=== PATIENT | female | born 1945 | race Caucasian/White ===

== ENCOUNTER 2020-07-04 13:56 | Outpatient (REF) | payer MEDICARE, SELFPAY ==
[2020-07-04 18:25] LABS: MANUAL DIFF FLAG NO
[2020-07-04 18:30] LABS: Basophils Percent Auto 0.3 % (0-2); Eosinophils Absolute Auto 0.2 X10*3/uL (0.0-0.4); Eosinophils Percent Auto 2.6 % (0-4); Hematocrit 38.1 % (37-47); Hemoglobin 13.1 g/dl (12.0-16.0); Imm Gran Abs Auto 0.01 X10*3/uL (0.00-0.03); Imm Gran Pct Auto 0.2 % (0.0-0.4); Lymphocytes Absolute Auto 2.7 X10*3/uL (1.2-4.9); Lymphocytes Percent Auto 43.8 % (20-40); Mean Corpuscular HGB Conc 34.4 g/dl (31.0-35.0); Mean Corpuscular Hemoglobin 32.3 pg (27.0-33.0); Mean Corpuscular Volume 94.1 fL (80-98); Mean Platelet Volume 12.2 fL (9.4-12.3); Monocytes Absolute Auto 0.5 X10*3/uL (0.1-1.2); Monocytes Percent Auto 7.7 % (2-11); Neutrophils Absolute Auto 2.8 X10*3/uL (2.0-8.3); Neutrophils Percent Auto 45.4 % (45-73); Platelet Count 172 X10*3/uL (160-400); Red Blood Count 4.05 X10*6/uL (4.20-5.50); Red Cell Distribution Width 11.9 % (11.0-16.0); White Blood Count 6.1 X10*3/uL (4.8-10.8)
[2020-07-04 18:59] LABS: Alanine Aminotransferase 27 U/L (0-31); Albumin Level 4.2 g/dL (3.5-5.0); Alkaline Phosphatase 101 U/L (39-117); Anion Gap 15 (12-20); Aspartate Amino Transferase 18 U/L (5-31); Bilirubin Total 0.5 mg/dL (0.0-1.0); Blood Urea Nitrogen 22 mg/dL (9-16); Calcium 8.9 mg/dL (8.4-10.2); Carbon Dioxide 22 mmol/L (22-29); Chloride 106 mmol/L (96-108); Estimated Glomerular Filt Rate > 60; Glucose Random 103 mg/dL (60-115); Potassium 4.3 mmol/L (3.3-5.1); Sodium 139 mmol/L (135-145)
[2020-07-04 19:20] LABS: Free T4 (Free Thyroxine) 1.15 ng/dL (0.71-1.85); Thyroid Stimulating Hormone 0.63 uIU/mL (0.32-4.0)
== END 2020-07-04 13:57 | disposition home or self-care (01) ==
LOC: HO.MANLDS 13:56
PROVIDERS: PCP Internal Medicine; Visit Provider Physician Assistant
DX: I10 Essential (primary) hypertension (principal); E03.9 Hypothyroidism, unspecified
CPT/HCPCS: 36415; 80053; 84439; 84443; 85025

== ENCOUNTER 2021-05-19 14:34 | Outpatient (REF) | payer MEDICARE, SELFPAY ==
[2021-05-19 17:49] LABS: MANUAL DIFF FLAG NO
[2021-05-19 18:10] LABS: Alanine Aminotransferase 17 U/L (0-31); Alkaline Phosphatase 94 U/L (39-117); Anion Gap 15 (12-20); Aspartate Amino Transferase 15 U/L (5-31); Bilirubin Total 0.6 mg/dL (0.0-1.0); Blood Urea Nitrogen 23 mg/dL (9-16); Carbon Dioxide 20 mmol/L (22-29); Chloride 105 mmol/L (96-108); Estimated Glomerular Filt Rate > 60; Glucose Random 116 mg/dL (60-115); Potassium 4.1 mmol/L (3.3-5.1); Sodium 136 mmol/L (135-145); Total Protein 6.9 g/dL (6.5-8.0)
[2021-05-19 18:17] LABS: Basophils Percent Auto 0.4 % (0-2); Eosinophils Absolute Auto 0.5 X10*3/uL (0.0-0.4); Eosinophils Percent Auto 9.6 % (0-4); Hematocrit 37.6 % (37.0-47.0); Hemoglobin 13.1 g/dl (12.0-16.0); Imm Gran Abs Auto 0.01 X10*3/uL (0.00-0.03); Imm Gran Pct Auto 0.2 % (0.0-0.4); Lymphocytes Percent Auto 36.4 % (20-40); Mean Corpuscular HGB Conc 34.8 g/dl (31.0-35.0); Mean Corpuscular Hemoglobin 31.7 pg (27.0-33.0); Mean Platelet Volume 11.8 fL (9.4-12.3); Monocytes Absolute Auto 0.5 X10*3/uL (0.1-1.2); Monocytes Percent Auto 9.2 % (2-11); Neutrophils Absolute Auto 2.4 x10*3/uL (2.0-8.3); Neutrophils Percent Auto 44.2 % (45-73); Platelet Count 181 X10*3/uL (160-400); Red Blood Count 4.13 X10*6/uL (4.20-5.50); White Blood Count 5.4 X10*3/uL (4.8-10.8)
[2021-05-19 18:35] LABS: Thyroid Stimulating Hormone 0.45 uIU/mL (0.32-4.0)
== END 2021-05-19 14:35 | disposition home or self-care (01) ==
LOC: HO.MANLDS 14:34
PROVIDERS: PCP Physician Assistant; Visit Provider Physician Assistant
DX: E03.8 Other specified hypothyroidism (principal)
CPT/HCPCS: 36415; 80053; 84439; 84443; 85025

== ENCOUNTER 2021-05-31 13:23 | Outpatient (REF) | payer MEDICARE, SELFPAY ==
--- NOTE | ~2021-05-31 | CT_ITS ---
CT INTERNAL AUDITORY CANALS WITH CONTRAST CLINICAL INFORMATION: Disorders of the left ear. COMPARISON: Head CT 08/21/2016. TECHNIQUE: Contiguous axial imaging was performed from the skull base to vertex following the administration of 100 mL of Omnipaque [address] examination was performed using dose optimization techniques as appropriate, variously including the following: *Automated exposure control *Adjustment of mA and/or kV according to patient size (this includes techniques or standardized protocols for targeted exams where dose is matched to indication/reason for exam; i.e. extremities or head) *Use of iterative reconstruction technique FINDINGS: Redemonstrate postoperative changes following left parietotemporal craniotomy/craniectomy as well as left-sided canal wall up mastoidectomy and partial left occipital craniectomy. There is increased rounded soft tissue extending from the left external auditory canal into the mesotympanum and epitympanum of the postsurgical left middle ear cavity inseparable from the progressively eroded left ossicular chain that is concerning for cholesteatoma or other pathology that would be better assessed with a lateral skull base protocol MRI. Chronic encephalomalacia and gliosis within the left cerebellum, the right temporal lobe, and the right frontal lobe again noted. Partially imaged right posterior approach ventricular shunt catheter. 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 Semicircular canals well covered with bone. Internal carotid arteries will cover with bone. The right mastoid air cells and the right middle ear cavities are clear. TMJs are intact. Paranasal sinuses remain well-aerated. CT/CT internal auditory canals BI IMPRESSION: - Redemonstrate postoperative changes following left parietotemporal craniotomy/craniectomy as well as left-sided canal wall up mastoidectomy and partial left occipital craniectomy. - There is increased rounded soft tissue extending from the left external auditory canal into the mesotympanum and epitympanum of the postsurgical left middle ear cavity inseparable from the progressively eroded left ossicular chain that is concerning for cholesteatoma or other pathology that would be better assessed with a lateral skull base protocol MRI which would also be helpful in excluding any cephalocele. This soft tissue likely contacts the undersurface of the tympanic segment of the left facial nerve. 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
== END 2021-05-31 13:24 | disposition home or self-care (01) ==
LOC: HO.CT 13:23
PROVIDERS: PCP Internal Medicine; Visit Provider Otolaryngology
DX: H93.8X2 Other specified disorders of left ear (principal)
CPT/HCPCS: 70480

== ENCOUNTER 2021-09-26 07:34 | Outpatient (REF) | payer MEDICARE, SELFPAY ==
[2021-09-26 12:24] LABS: Anion Gap 15 (12-20); Blood Urea Nitrogen 17 mg/dL (9-16); Calcium 8.9 mg/dL (8.4-10.2); Carbon Dioxide 23 mmol/L (22-29); Chloride 104 mmol/L (96-108); Estimated Glomerular Filt Rate > 60; Glucose Random 89 mg/dL (60-115); Potassium 4.3 mmol/L (3.3-5.1); Sodium 138 mmol/L (135-145)
== END 2021-09-26 07:35 | disposition home or self-care (01) ==
LOC: HO.MANLDS 07:34
PROVIDERS: Visit Provider Physician Assistant
DX: E87.1 Hypo-osmolality and hyponatremia (principal)
CPT/HCPCS: 36415; 80048

== ENCOUNTER 2021-12-19 09:27 | Outpatient (REF) | payer MEDICARE, SELFPAY ==
[2021-12-19 11:02] LABS: MANUAL DIFF FLAG NO
[2021-12-19 11:35] LABS: Basophils Percent Auto 0.7 % (0-2); Eosinophils Absolute Auto 0.2 X10*3/uL (0.0-0.4); Eosinophils Percent Auto 4.6 % (0-4); Hematocrit 39.2 % (37.0-47.0); Imm Gran Abs Auto 0.01 X10*3/uL (0.00-0.03); Imm Gran Pct Auto 0.2 % (0.0-0.4); Lymphocytes Absolute Auto 1.7 X10*3/uL (1.2-4.9); Lymphocytes Percent Auto 37.1 % (20-40); Mean Corpuscular HGB Conc 35.7 g/dl (31.0-35.0); Mean Corpuscular Hemoglobin 32.9 pg (27.0-33.0); Mean Platelet Volume 10.3 fL (9.4-12.3); Monocytes Absolute Auto 0.4 X10*3/uL (0.1-1.2); Monocytes Percent Auto 8.4 % (2-11); Neutrophils Absolute Auto 2.2 x10*3/uL (2.0-8.3); Platelet Count 220 X10*3/uL (160-400); Red Blood Count 4.26 X10*6/uL (4.20-5.50); Red Cell Distribution Width 11.8 % (11.0-16.0); White Blood Count 4.6 X10*3/uL (4.8-10.8)
[2021-12-19 14:22] LABS: Alanine Aminotransferase 16 U/L (0-31); Albumin Level 4.6 g/dL (3.5-5.0); Alkaline Phosphatase 116 U/L (39-117); Anion Gap 17 (12-20); Aspartate Amino Transferase 17 U/L (5-31); Bilirubin Total 0.4 mg/dL (0.0-1.0); Blood Urea Nitrogen 15 mg/dL (9-16); Calcium 9.4 mg/dL (8.4-10.2); Carbon Dioxide 24 mmol/L (22-29); Chloride 95 mmol/L (96-108); Estimated Glomerular Filt Rate > 60; Glucose Random 95 mg/dL (60-115); Potassium 3.9 mmol/L (3.3-5.1); Sodium 132 mmol/L (135-145); Total Protein 7.5 g/dL (6.5-8.0)
[2021-12-19 14:45] LABS: Free T4 (Free Thyroxine) 1.45 ng/dL (0.71-1.85); Thyroid Stimulating Hormone 0.45 uIU/mL (0.32-4.0)
== END 2021-12-19 09:28 | disposition home or self-care (01) ==
LOC: HO.MANLDS 09:27
PROVIDERS: Visit Provider Physician Assistant
DX: Z13.89 Encounter for screening for other disorder (principal)
CPT/HCPCS: 36415; 80053; 84439; 84443; 85025

== ENCOUNTER 2022-03-19 10:49 | Outpatient (REF) | payer MEDICARE, SELFPAY ==
[2022-03-19 13:57] LABS: MANUAL DIFF FLAG NO
[2022-03-19 14:06] LABS: Basophils Percent Auto 0.5 % (0-2); Eosinophils Absolute Auto 0.5 X10*3/uL (0.0-0.4); Eosinophils Percent Auto 7.5 % (0-4); Hematocrit 41.3 % (37.0-47.0); Hemoglobin 14.2 g/dl (12.0-16.0); Imm Gran Abs Auto 0.01 X10*3/uL (0.00-0.03); Imm Gran Pct Auto 0.2 % (0.0-0.4); Lymphocytes Absolute Auto 1.8 X10*3/uL (1.2-4.9); Lymphocytes Percent Auto 29.4 % (20-40); Mean Corpuscular HGB Conc 34.4 g/dl (31.0-35.0); Mean Corpuscular Hemoglobin 32.2 pg (27.0-33.0); Mean Corpuscular Volume 93.7 fL (80.0-98.0); Mean Platelet Volume 11.6 fL (9.4-12.3); Monocytes Absolute Auto 0.4 X10*3/uL (0.1-1.2); Monocytes Percent Auto 6.9 % (2-11); Neutrophils Absolute Auto 3.5 x10*3/uL (2.0-8.3); Neutrophils Percent Auto 55.5 % (45-73); Platelet Count 168 X10*3/uL (160-400); Red Blood Count 4.41 X10*6/uL (4.20-5.50); Red Cell Distribution Width 11.9 % (11.0-16.0); White Blood Count 6.3 X10*3/uL (4.8-10.8)
[2022-03-19 14:15] LABS: Estimated Average Glucose 100 mg/dL; Hemoglobin A1c % 5.1 %
[2022-03-19 14:32] LABS: Alanine Aminotransferase 22 U/L (0-31); Albumin Level 4.2 g/dL (3.5-5.0); Alkaline Phosphatase 109 U/L (39-117); Anion Gap 14 (12-20); Aspartate Amino Transferase 20 U/L (5-31); Bilirubin Total 0.3 mg/dL (0.0-1.0); Blood Urea Nitrogen 17 mg/dL (9-16); Carbon Dioxide 26 mmol/L (22-29); Chloride 105 mmol/L (96-108); Cholesterol 214 mg/dL; Estimated Glomerular Filt Rate > 60; Glucose Random 98 mg/dL (60-115); HDL Cholesterol 63 mg/dL; LDL Cholesterol Calculated 131 mg/dl; Potassium 4.1 mmol/L (3.3-5.1); Sodium 141 mmol/L (135-145); Triglycerides 100 mg/dL
[2022-03-19 14:49] LABS: Free T4 (Free Thyroxine) 1.32 ng/dL (0.71-1.85); Thyroid Stimulating Hormone 0.71 uIU/mL (0.32-4.0)
== END 2022-03-19 10:50 | disposition home or self-care (01) ==
LOC: HO.MANLDS 10:49
PROVIDERS: Visit Provider Physician Assistant
DX: I10 Essential (primary) hypertension (principal); E03.8 Other specified hypothyroidism
CPT/HCPCS: 36415; 80053; 80061; 83036; 84439; 84443; 85025

== ENCOUNTER 2022-06-19 12:55 | Outpatient (REF) | payer MEDICARE, SELFPAY ==
--- NOTE | ~2022-06-19 | US_ITS ---
EXAMINATION: US EXTRACRANIAL CAROTID DUPLEX, BILATERAL CLINICAL INFORMATION: Dizziness. COMPARISON: None available. TECHNIQUE: Real-time ultrasound and Doppler techniques (integrating B-mode 2-D vascular images, Doppler spectral analysis and color-flow Doppler imaging) were utilized to interrogate the extracranial carotid arteries, the vertebral arteries and proximal subclavian arteries bilaterally. The degree of stenosis is determined by criteria similar to NASCET. FINDINGS: Right Side: 1. There is no atherosclerotic plaque seen in the bifurcation/proximal ICA region. 2. The common carotid artery PSV proximally is 85 cm/s and distally 52 cm/s. 3. The proximal internal carotid artery velocities are 35 cm/s systolic and 11 cm/s diastolic. 4. The proximal external carotid artery PSV is 90 cm/s. 5. The vertebral artery shows antegrade flow. 6. The subclavian artery waveforms are normal. Left Side: 1. There is no atherosclerotic plaque seen in the bifurcation/proximal ICA region. 2. The common carotid artery PSV proximally is 70 cm/s and distally 56 cm/s. 3. The proximal internal carotid artery velocities are 106 cm/s systolic and 28 cm/s diastolic. 4. The proximal external carotid artery PSV is 63 cm/s. 5. The vertebral artery shows antegrade flow. 6. The subclavian artery waveforms are normal. US/US carotid duplex BI IMPRESSION: 1. RIGHT: Normal right internal carotid artery without atherosclerotic plaque or hemodynamically significant stenosis. 2. LEFT: Normal left internal carotid artery without atherosclerotic plaque or hemodynamically significant stenosis.
== END 2022-06-19 12:56 | disposition home or self-care (01) ==
LOC: HO.US 12:55
PROVIDERS: PCP Internal Medicine; Visit Provider Physician Assistant
DX: R42 Dizziness and giddiness (principal)
CPT/HCPCS: 93880

== ENCOUNTER 2023-03-26 11:26 | Outpatient (REF) | payer MEDICARE, SELFPAY ==
[2023-03-26 14:52] LABS: MANUAL DIFF FLAG NO
[2023-03-26 15:03] LABS: Basophils Percent Auto 0.3 % (0-2); Eosinophils Percent Auto 0.3 % (0-4); Hematocrit 41.1 % (37.0-47.0); Imm Gran Abs Auto 0.05 X10*3/uL (0.00-0.03); Imm Gran Pct Auto 0.6 % (0.0-0.4); Mean Corpuscular HGB Conc 34.1 g/dl (31.0-35.0); Mean Corpuscular Hemoglobin 31.5 pg (27.0-33.0); Mean Corpuscular Volume 92.4 fL (80.0-98.0); Mean Platelet Volume 12.4 fL (9.4-12.3); Monocytes Absolute Auto 0.7 X10*3/uL (0.1-1.2); Monocytes Percent Auto 7.9 % (2-11); Neutrophils Percent Auto 56.9 % (45-73); Platelet Count 153 X10*3/uL (160-400); Red Blood Count 4.45 X10*6/uL (4.20-5.50); Red Cell Distribution Width 12.3 % (11.0-16.0); White Blood Count 8.7 X10*3/uL (4.8-10.8)
[2023-03-26 15:37] LABS: Alanine Aminotransferase 86 U/L (0-31); Alkaline Phosphatase 89 U/L (39-117); Anion Gap 13 (12-20); Aspartate Amino Transferase 42 U/L (5-31); Bilirubin Total 0.4 mg/dL (0.0-1.0); Blood Urea Nitrogen 20 mg/dL (9-16); Calcium 9.6 mg/dL (8.4-10.2); Carbon Dioxide 22 mmol/L (22-29); Chloride 107 mmol/L (96-108); Estimated Glomerular Filt Rate > 60; Glucose Random 97 mg/dL (60-115); Potassium 3.6 mmol/L (3.3-5.1); Sodium 138 mmol/L (135-145)
== END 2023-03-26 11:27 | disposition home or self-care (01) ==
LOC: HO.MANLDS 11:26
PROVIDERS: Visit Provider Physician Assistant
DX: M94.0 Chondrocostal junction syndrome [Tietze] (principal); I10 Essential (primary) hypertension; E03.8 Other specified hypothyroidism
CPT/HCPCS: 36415; 80053; 83735; 84439; 84443; 85025

== ENCOUNTER 2023-04-26 13:50 | Outpatient (REF) | payer MEDICARE, SELFPAY ==
[2023-04-26 17:50] LABS: C Reactive Protein 0.22 mg/dL (< or = 0.50); Calcium 9.5 mg/dL (8.4-10.2); Magnesium 2.2 mg/dL (1.6-2.6); Phosphorus 3.4 mg/dL (2.7-4.5); Uric Acid 5.9 mg/dL (2.4-5.7)
[2023-04-26 17:51] LABS: Rheumatoid Factor < 13.0 IU/mL (<15.0)
[2023-04-26 17:57] LABS: Parathyroid Hormone Intact 49.6 pg/mL (8.7-77.1)
[2023-04-26 18:06] LABS: Free T4 (Free Thyroxine) 1.39 ng/dL (0.71-1.85); Thyroid Stimulating Hormone 1.07 uIU/mL (0.32-4.0)
[2023-04-26 18:19] LABS: Erythrocyte Sedimentation Rate 30 MM/HR (0-20)
[2023-04-29 12:53] LABS: Thyroid Peroxidase Antibodies 1 IU/mL (<9)
[2023-04-29 13:33] LABS: Anti DNA DS Antibody <1 IU/mL
[2023-04-29 15:08] LABS: Cyclic Citrullinated Peptide <16 UNITS
[2023-04-29 19:33] LABS: Lyme Abs Screen <0.90 index
[2023-05-01 13:49] LABS: NT-proBNP 102 pg/mL (<450)
[2023-05-02 12:24] LABS: Anti Nuclear Antibody Screen POSITIVE (NEGATIVE); Anti Nuclear Antibody Titer 1:40 titer
[2023-05-02 14:23] LABS: DNAds, Crithidia Antibody Negative (Negative)
== END 2023-04-26 13:51 | disposition home or self-care (01) ==
LOC: HO.MANLDS 13:50
PROVIDERS: Visit Provider Physician Assistant
DX: M35.3 Polymyalgia rheumatica (principal); E03.8 Other specified hypothyroidism; R60.0 Localized edema; M79.18 Myalgia, other site
CPT/HCPCS: 36415; 82310; 82550; 83735; 83880; 83970; 84100; 84439; 84443; 84550; 85652; 86038; 86039; 86140; 86200; 86225; 86255; 86376; 86431; 86617; 86618

== ENCOUNTER 2023-05-22 15:21 | Outpatient (REF) | payer MEDICARE, SELFPAY ==
[2023-05-22 17:19] LABS: MANUAL DIFF FLAG NO
[2023-05-22 17:39] LABS: Basophils Percent Auto 0.4 % (0-2); Eosinophils Absolute Auto 0.1 X10*3/uL (0.0-0.4); Eosinophils Percent Auto 2.3 % (0-4); Hematocrit 37.6 % (37.0-47.0); Imm Gran Abs Auto 0.02 X10*3/uL (0.00-0.03); Imm Gran Pct Auto 0.4 % (0.0-0.4); Lymphocytes Absolute Auto 2.1 X10*3/uL (1.2-4.9); Lymphocytes Percent Auto 38.9 % (20-40); Mean Corpuscular HGB Conc 34.6 g/dl (31.0-35.0); Mean Corpuscular Hemoglobin 32.3 pg (27.0-33.0); Mean Corpuscular Volume 93.5 fL (80.0-98.0); Mean Platelet Volume 11.3 fL (9.4-12.3); Monocytes Absolute Auto 0.3 X10*3/uL (0.1-1.2); Monocytes Percent Auto 4.9 % (2-11); Neutrophils Absolute Auto 2.8 x10*3/uL (2.0-8.3); Neutrophils Percent Auto 53.1 % (45-73); Platelet Count 160 X10*3/uL (160-400); Red Blood Count 4.02 X10*6/uL (4.20-5.50); White Blood Count 5.3 X10*3/uL (4.8-10.8)
[2023-05-22 18:12] LABS: Alanine Aminotransferase 26 U/L (0-31); Alkaline Phosphatase 97 U/L (39-117); Anion Gap 12 (12-20); Aspartate Amino Transferase 19 U/L (5-31); Bilirubin Total 0.4 mg/dL (0.0-1.0); Blood Urea Nitrogen 25 mg/dL (9-16); Calcium 8.9 mg/dL (8.4-10.2); Carbon Dioxide 21 mmol/L (22-29); Chloride 108 mmol/L (96-108); Estimated Glomerular Filt Rate > 60; Glucose Random 163 mg/dL (60-115); Potassium 3.7 mmol/L (3.3-5.1); Sodium 137 mmol/L (135-145)
[2023-05-22 18:31] LABS: Free T4 (Free Thyroxine) 1.13 ng/dL (0.71-1.85); Thyroid Stimulating Hormone 1.22 uIU/mL (0.32-4.0)
== END 2023-05-22 15:22 | disposition home or self-care (01) ==
LOC: HO.MANLDS 15:21
PROVIDERS: Visit Provider Physician Assistant
DX: I10 Essential (primary) hypertension (principal); E03.8 Other specified hypothyroidism
CPT/HCPCS: 36415; 80053; 84439; 84443; 85025

== ENCOUNTER 2024-09-01 15:06 | Outpatient (REF) | payer MEDICARE, SELFPAY ==
--- OUTSIDE RECORDS SUMMARY | 2024-04-02 09:45 | XMS_ITS ---
Author Organization [facility] Address [address] [facility] [address] [place] [address] Care Team Providers Care Phlebotomist Prn Name Role Phone Александр Alves D.O. Primary Care Provider Unavailab yasmeen Oropeza MD, Ellen Quinones [phone] REASON FOR VISIT mastoid cleaning Encounters Encounter Location Date Provider Diagnosis [facility] [address] [facility] [address] [place] [address] 04/02/2024 Ellen Oropeza Plan Of Treatment Next Appt Details Provider Name:Ellen eldridge, 01/07/2025 01:15:00 PM, [address] [facility] [facility], [place], [address], Progress Notes * Maura SAN ADOB:1945 (79 yo F)Acc No.[id number]:04/02/2024 Progress Notes Patient: Maura PEMBERTON Provider: Marii Oropeza MD :1945 A ge:79 Y S ex:Female Date:04/02/2024 [facility] [place] [id number] Pcp:Александр Alves D.O. Subjective: * Chief Complaints: * 1 . Mastoid cleaning. * Medical History: Objective: * Vitals: * Physical Examination: Assessment: Plan: * Treatment: * Images: * Electronic signature of Bernadine Oropeza MD, on 09/01/2024 at 03:46 PM EDT Sign off status: Pending * Provider: Marii Oropeza MD Date: 0 04/02/2024 Generated for Shira blevins/Mohini/Marian on: 0 09/01/2024 03:46 PM EDT
[2024-09-01 15:25] LABS: MANUAL DIFF FLAG NO
[2024-09-01 15:33] LABS: Hematocrit 38.2 % (37.0-47.0); Hemoglobin 13.4 g/dl (12.0-16.0); Imm Gran Abs Auto 0.01 X10*3/uL (0.00-0.03); Imm Gran Pct Auto 0.2 % (0.0-0.4); Lymphocytes Absolute Auto 2.2 X10*3/uL (1.2-4.9); Mean Corpuscular HGB Conc 35.1 g/dl (31.0-35.0); Mean Corpuscular Hemoglobin 32.3 pg (27.0-33.0); Mean Corpuscular Volume 92.0 fL (80.0-98.0); NRBC Abs Auto 0.000 X10*3/uL (0.0-0.012); NRBC Pct Auto 0.0 /100WBC (0.0-0.2); Platelet Count 154 X10*3/uL (160-400); Red Blood Count 4.15 X10*6/uL (4.20-5.50); White Blood Count 5.7 X10*3/uL (4.8-10.8)
[2024-09-01 15:40] LABS: Hemoglobin A1C 122.3782 umol/L; Total Hemoglobin (HGBA1C) 3563.7821 umol/L
--- OUTSIDE RECORDS SUMMARY | 2024-09-01 15:47 | XMS_ITS | Continuity of Care Document ---
Author Organization [place] - [facility], [facility] Address [address] [place] [address] [place] [address] Assessment Encounter Date Assessment Date Assessment LastModified by Organization Details LastModified Time 09/01/2024 09/01/2024 Patient presented for medication refill. Patient tolerating medication well at current dose without adverse effects. Refilled as below. Discussed plan with patient, who expressed understanding . Follow up as noted below. [email or web address] Not available 09/01/2024 11:59:45 Plan of Treatment Reminders Order Date Submit Date Provider Last Modified By Organization Details Last Modified Time Details Appointments FOLLOW UP 15 2024 11:45A GRECIA RANGEL Not available Not available Not available Lab vitamin B12 + folate, serum or blood 2024 025 [facility], [address] [place] [address], [id number], 09/01/2024 12:12:45 iron + TIBC + ferritin, serum 2024 025 [facility], [address] [place] [address], [id number], 09/01/2024 12:12:45 CBC w/ auto diff 2024 025 [facility], [address] [place] [address], [id number], 09/01/2024 12:12:45 vitamin D, 25-hydrox y, total, serum 2024 025 [facility], [address] [place] [address], [id number], 09/01/2024 12:12:45 CMP, serum or plasma 2024 [facility], [address] [place] [address], [id number], 09/01/2024 12:12:45 magnesium , serum or plasma 2024 [facility], [address] [place] [address], [id number], 09/01/2024 12:12:45 ESR (erythroc yte sedimenta tion rate), blood 2024 [facility], [address] [place] [address], [id number], 09/01/2024 12:12:45 C-reactiv e protein, quantitat ciro, serum or plasma 2024 [facility], [address] [place] [address], [id number], 09/01/2024 12:12:45 hemoglobi n A1c, QN, blood 2024 [facility], [address] [place] [address], [id number], 09/01/2024 12:12:45 TSH + free T4, serum 2024 [facility], [address] [place] [address], [id number], 09/01/2024 12:12:45 Referral None recorded. Procedures None recorded. Surgeries None recorded. Imaging US, duplex, arterial, lower extremity , complete 2024 [email or web address] [facility], [address] [place] [address], [id number], 09/01/2024 13:46:27 US, echocardi ogram 2024 025 [facility], [address], [place], [address], 09/01/2024 15:10:45 Medication Orders propranol ol 20 mg tablet 2024 025 [id number], [address] [place], [place], [id number], 09/01/2024 12:14:48 Patient TargetsNo targets recorded. Patient InstructionsNo instructions recorded. Reason for Referral None Reported. Problems Name Problem SNOMED Code Status Onset Date Resolution Date Notes Provider Name and Address Organization Details Recorded Time Hypothyro idism 82889145 Active 2018 Roselia Gonzalez NP, [address] [place], [address], [facility] 9 10:29:13 Hearing loss 18526834 Active 2018 Karissa velázquez [facility] 9 15:22:34 Vaginal wall prolapse 599617778 Active 2018 Karissa velázquez [facility] 9 15:22:54 History of stress incontine nce 488734002 Active 2018 Karissa velázquez [facility] 9 15:23:01 Ventricul operitone al shunt Active 2018 Karissa velázquez [facility] 9 15:23:18 Essential hypertens ion 89065391 Active 2021 GRECIA GOLD [address] [place], [address], [place] [facility] 2 12:20:28 Hyponatre gigi 11883730 Active 2021 GRECIA GOLD [address] [place], [address], [facility] 2 09:32:05 Dizziness 760809054 Active 2022 GRECIA GOLD [address] [place], [address], [facility] 3 10:15:01 Right flank pain 622956877 Active 2022 GRECIA GOLD [address] [place] [address], [address], [facility] 3 11:44:08 Costal chondriti s 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 Active 2023 GRECIA GOLD [address] [place] [address], [address], [facility] 4 11:30:15 COVID-19 826574945 Active 2023 GRECIA GOLD [address] [place] [address], [address], [facility] 4 11:36:20 Polymyalg ia rheumatic a 09508515 Active 2023 GRECIA GOLD [address] [place] [address], [address], [facility] 4 12:10:28 Postviral fatigue syndrome 66753047 Active 2023 GRECIA GOLD [address] [place] [address], [address], [facility] 4 12:12:46 Muscle pain 67350912 Active 2023 GRECIA GOLD [address] [place] [address], [address], [facility] 4 12:16:02 Edema of lower extremity 824136382 Active 2023 GRECIA GOLD [address] [place] [address], [address], [facility] 4 12:17:04 Pain of multiple joints 43645161 Active 2023 GRECIA GOLD [address] [place] [address], [address], [facility] 4 13:59:03 Uric acid level above reference range 87495515 Active 2023 GRECIA GOLD [address] [place], [address], [facility] 4 13:59:12 Swelling of bilateral lower limbs 681913094 Active 2023 GRECIA GOLD [address] [place], [address], [facility] 4 16:04:20 Pain of right knee joint 226123784996 100 Active 2023 GRECIA GOLD [address] [place], [address], [facility] 4 16:07:09 Pain of bilateral knee joints 577302491137 104 Active 2023 GRECIA GOLD [address] [place], [address], [facility] 4 12:18:14 Osteoarth ritis 336524733 Active 2023 GRECIA GOLD [address] [place], [address], [facility] 4 12:25:13 Fatigue 36040758 Active 2024 GRECIA GOLD [address] [place], [address], [facility] 5 12:02:57 Impaired fasting glycemia 508167262 Active 2024 GRECIA GOLD [address] [place], [address], [facility] 5 12:05:54 Atypical chest pain 851087305 Active 2024 GRECIA GOLD [address] [place] [address], [address], [facility] 5 12:06:38 Palpitati ons 21802001 Active 2024 GRECIA GOLD [address] [place], [address], [facility] 5 12:07:03 Weakness of bilateral lower limb Active 2024 GRECIA GOLD [address] [place] [address], [address], [facility] 5 12:09:41 Problem Notes None recorded. Procedures Surgical History Date Name Laterality Status Provider Name and Address Organization Details Recorded Time 024 Corticosteroid Injection completed Александр Alves DO [address] [place] [address], [address], [facility] 05/29/2023 15:35:07 022 Cerumen Removal completed GRECIA GOLD [address] [place] [address], [address], [facility] 04/19/2021 14:30:11 020 Cerumen Removal completed May GRACE Dalton [address] [place] [address], [address], [facility] 04/15/2019 14:29:22 016 Skull base/brainstem surgery completed May GRACE Dalton [address] [place] [address], [address], [facility] 08/18/2018 14:47:41 013 Most Recent Mammogram completed Florsolo Renae [facility] 08/15/2018 16:42:39 [employer] Shunt Placement completed Florsolo Renae [facility] 08/15/2018 16:37:40 surgical repair completed May GRACE Hinojosa [address] [place] [address], [address], [facility] 08/18/2018 14:45:36 section completed Florsolo Renae [facility] 08/15/2018 16:39:19 Imaging Results None recorded. Procedure Notes None recorded. Medical Equipment None Reported. Allergies Allergen ID Allergen Name Allergen Category Reaction Reaction Severity Criticality Documentation Date Start Date Code Code System Note Provider Name and Address Organization Details Recorded Time 3132 Iodinated contrast media (substanc e) medicatio n Not available Not available Not available 08/15/2018 34725 2004 [facility]ED [facility] 9 16:36:18 3135 latex environme nt,medica tion facial swelling Not available Not available 08/18/2018 68532 91 [facility] 14:29:30 4917 amlodipin e medicatio n chest pain moderate Not available 12/02/2020 19062 RxNorm MONICA CLARK, GRECIA [address] [place], [address], [facility] 1 10:36:46 5607 metoprolo l Not available other Not available Not available 05/17/2021 6918 RxNorm amrik rgy, chest pain, palpi tatio ns GRECIA GOLD [address] [place], [address], [facility] 2 13:49:07 6096 irbesarta n medicatio n Not available Not available Not available 12/19/2021 33103 RxNorm GRECIA GOLD [address] [place], [address], [facility] 2 09:10:41 Medications Name Sig Start Date Stop Date Status Note LastModified by Organization Details LastModified Time diclofena c 3 % topical gel 07/04 completed Not Available Not Available Not Available carvedilo l 25 mg tablet TAKE 1 TABLET BY MOUTH TWICE DAILY 08/08 completed Not Available Not Available Not Available prednison e 10 mg tablet 50 mg x 2 days40 mg x 2 days30 mg x 2 days 20 mg x 2 days10 mg x 2 days 04/25 completed Not Available Not Available Not Available carvedilo l 12.5 mg tablet TAKE 1 TABLET BY MOUTH TWICE DAILY active Not Available Not Available No t Available prazosin 1 mg capsule TAKE 1 CAPSULE BY MOUTH EVERY DAY 05/28 completed Not Available Not Available Not Available prednison e 20 mg tablet TAKE 3 TABLETS BY MOUTH EVERY DAY FOR 5 DAYS 09/01 completed Not Available Not Available Not Available Synthroid 100 mcg tablet TAKE 1 TABLET BY MOUTH EVERY DAY active Not Available Not Available No t Available atenolol 25 mg tablet TAKE 1 TABLET BY MOUTH BID 01/16 completed BP still high, trying differen t med Not Available Not Available Not Available amlodipin e 2.5 mg tablet TAKE 1 TABLET BY MOUTH DAILY 12/02 completed Not Available Not Available Not Available allopurin ol 100 mg tablet TAKE 1 TABLET BY MOUTH EVERY DAY active Not Available Not Available No t Available prazosin 5 mg capsule TAKE 1 CAPSULE BY MOUTH EVERY DAY 09/01 completed Not Available Not Available Not Available metoprolo l tartrate 50 mg tablet TAKE 1 TABLET BY MOUTH TWICE DAILY active Not Available Not Available No t Available irbesarta n 75 mg tablet TAKE 1 TABLET BY MOUTH EVERY DAY 12/19 completed Not Available Not Available Not Available hydrochlo rothiazid e 25 mg tablet TAKE 1 TABLET BY MOUTH EVERY DAY 01/15 completed Not Available Not Available Not Available labetalol 100 mg tablet TAKE 2 TABLETS BY MOUTH IN THE MORNING, THEN 1 TABLET AT NIGHT active Not Available Not Available No t Available propranol ol 20 mg tablet Take 1 tablet every day by oral route as directed for 30 days. 2024 active Not Available Not Available Not Avai lable atenolol 50 mg tablet TAKE 1 TABLET BY MOUTH EVERY DAY 12/19 completed Not Available Not Available Not Available neomycin- polymyxin -hydrocor t 3.5 mg-10,000 unit/mL-1 % ear drops,tip p SHAKE LIQUID AND INSTILL 4 DROPS TO AFFECTED EAR THREE TIMES DAILY 05/17 completed Not Available Not Available Not Available ciproflox acin 0.3 %-dexamet hasone 0.1 % ear drops,tip pension INSTILL 4 DROPS INTO LEFT EAR TWICE DAILY FOR 7 DAYS 12/19 completed Not Available Not Available Not Available Aspir-81 m,w,f 04/19 completed Not Available Not Available Not Available hydrochlo rothiazid e 12.5 mg tablet TAKE 1 TABLET BY MOUTH EVERY DAY 08/08 completed Not Available Not Available Not Available COVID-19 At-Home Test kit Take 1 kit every day by miscell. route as directed . 04/25 completed Not Available Not Available Not Available Vitals Date Recorded Body height Heart rate Oxygen saturation Oxygen saturation in Arterial blood by Pulse oximetry Systolic And Diastolic Provider Name and Address Organization Details Last Updated DateTime 5 161.29 cm 70 /min 93 % 93 % 152/84 mm[Hg] Kacy Dong [facility] 5 11:44:05 Social History Question Answer Notes LastModified by Organizat ion Details LastModified Time Tobacco Smoking Status Former Smoker Karissa Zia velázquez [facility] 06/06/2018 15:21:56 What Was The Date Of Your Most Recent Tobacco Screening? 09/01/2024 [email or web address] Information not available 09/01/2024 Sex: Unknown Functional Status Question Answer Note LastModified by Organization D etails LastModified Time Do you or have you ever used any other forms of tobacco or nicotine? No [email or web address] Information not available 05/28/2022 Mental Status None recorded. Family History Relationship Description Onset Age of this Age Resolved Age Notes LastModified by Organization Details LastModified Time Mother Family history of malignant neoplasm colon [email or web address] Not available 2018 16:40:58 Father Injury of head [email or web address] Not available 2018 16:41:20 Medical History No medical history recorded. Gynecological History Statement/Question Response Most Recent Mammogram 04/03/2012 Obstetrics History GPAL:G 0 P 0 0 0 0 Immunizations Vaccine Type Date Status Note Provider Nam e and Address Organization Details Recorded Time COVID-19, mRNA, LNP-S, PF, 100 mcg/0.5mL dose or 50 mcg/0.25mL dose 02/20/2021 nathan velázquez [facility] 12/19/2021 07:56:52 Td (adult) 06/28/1998 nathan velázquez [facility] 12/19/2021 07:57:13 COVID-19, mRNA, LNP-S, PF, 50 mcg/0.5 mL dose 01/10/2022 nathan velázquez [facility] 03/19/2022 08:03:37 COVID-19, mRNA, LNP-S, PF, 30 mcg/0.3 mL dose 04/29/2020 completed Lizzie Aceves melania [facility] 07/04/2020 13:45:45 COVID-19, mRNA, LNP-S, PF, 30 mcg/0.3 mL dose 05/27/2020 completed Lizzie Aceves melania [facility] 07/04/2020 13:45:51 Past Encounters Encounter ID Performer Location Encounter Start Date Encounter Closed Date Diagnosis/Indication Diagnosis SNOMED-CT Code Diagnosis ICD10 Code Diagnosis Note [id number] Александр Alves, [facility] [address],[place] [address] 09/01/2024 11:36:28 09/01/2024 13:46:27 Depression screening 126396724 Z13.31 negative Fatigue 58455764 R53.83 probable side effect to medication Essential hypertension 28387259 I10 excellent control with prazosin Hypothyroidism 84691750 E03.8 recheck levels Impaired f asting glycemia 594496044 R73.01 A1c Atypical chest pain 1025 83823 R07.89 Palpitations 67729267 R0 0.2 will [address] up with CT brain and US duplex Weakness o f bilateral lower limb 2829908894 15906 R29.898 will set up with US duplex Health Concerns Section Related Observation LastModified by Organization Detai ls LastModified Time None Recorded Concern Status LastModified by Organization Details LastModified Time None Recorded Payers Encounter Date Sequence Insurance Name Policy Number Policy Nunez Covered Member ID Nunez Member ID Guarantor Name 09/01/2024 1 [facility]: MEDICARE PPO BLUE (MEDICARE REPLACEMENT PPO) [id number] Maura San [id number] Maura San Notes Date Note Type Note Provider Name a nd Address Organization Details Recorded Time 09/01/2024 text/html f/u BP, feeling fatigued, tired, weak the patient reporting symptoms of the prazosinshe is having sob, tightness of chest, easy fatigue, weight gain (refused weight in the office)muscle weakness in the LE's bilaterallythe patient reports that she is tired all day, from when she wakes up the patient does use the elliptical and randy boshe is napping throughout the day, for about 30 minute each usually after activityhaving shaking and tremors, the patient does have gait changes, but though she has had gait issues for awhile, the patient is shuffling gait the patient is not drooling or snoring at nightthe patient sleep continuously at night, does not get up to urinate or anything the patient's elevation in BP at home and in officethe patient has had a few episodes of BP over 170/90 averaging 7 to 8 hours of sleepeating okay, no sig water retention that she has noticedeats twice a day the patient denies any numbness and tinglingdenies headaches or vision changesno spots or floaters constant leg weakness, fatigue GRECIA GOLD [address] [facility], [place], [address], [facility] 09/01/2024 12:17:21 OBGyn Episode No OBEpisode recorded.
[2024-09-01 16:11] LABS: Iron 94 mcg/dL (30-160); Magnesium 2.3 mg/dL (1.6-2.6); Percent Iron Saturation 36 % (15-50); Total Iron Binding Capacity 261 mcg/dL (228-428); Unsaturated Iron Binding 167 ug/dL
[2024-09-01 16:22] LABS: Ferritin 98 ng/mL (10-250); Free T4 (Free Thyroxine) 1.12 ng/dL (0.71-1.85); Thyroid Stimulating Hormone 0.83 uIU/mL (0.32-4.0)
[2024-09-01 16:32] LABS: Folate 9.8 ng/mL (> or = 4.0); Vitamin B12 426 pg/mL (200-900)
== END 2024-09-01 15:07 | disposition home or self-care (01) ==
LOC: HO.LAB 15:06
PROVIDERS: PCP Physician Assistant; Visit Provider Physician Assistant
DX: R73.01 Impaired fasting glucose (principal); E03.8 Other specified hypothyroidism; R53.83 Other fatigue
CPT/HCPCS: 36415; 82607; 82728; 82746; 83036; 83540; 83735; 84439; 84443; 85025; 85652; 86140

== ENCOUNTER → 2024-10-16 12:50 | Outpatient (REF) | payer MEDICARE, SELFPAY ==
--- OUTSIDE RECORDS SUMMARY | 2019-08-03 13:52 | XMS_ITS | Encounter Summary ---
Author Organization [facility] Address [address] [place] [address] [place] [address] Phone Care Team Providers Care Insurance Risk Surveyor Name Role Phone Александр Alves DO Primary Care Provider [phone] Encounter Details Date Type Department Care Team (Late st Contact Info) Description 08/03/2019 1:52 PM EDT Hospital Encounter [facility] [address] [place] [address] Pete Krause, UBALDO [address] [place] [address] [place] [phone] Social History Tobacco Use Types Packs/Day Years [...] or worrisome bony lesion identified. POS - [id number] Narrative 08/03/2019 2:09 PM EDT AP and [...] or worrisome bony lesion identified. POS - [id number] us Pete Krause GROUND SUPPORT EQUIPMENT MECHANIC IMG XR UPPER EXTREMITY Final Re sult documented in this encounter Visit Diagnoses Not on filedocumented in this encounter Care Teams Insurance Risk Surveyor Relationship Specialty Start Date End Date Александр Alves DO [email or web address] PCP - General Internal Medicine 03/10/19 documented as of this encounter Additional Source Comments The information contained in this document represents components of the legal health record. It is not the complete legal health record.[facility]
--- NOTE | 2024-10-16 12:52 | CA_ITS ---
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 Normal LV ejection fraction of 65-70% with grade 1 diastolic dysfunction 2. Normal cardiac valvular Dopplers 3. Upper limits of normal ascending aortic size 4. Normal RV systolic pressure 5. Small pericardial effusion near left ventricle Findings Left Ventricle Normal left ventricular size, thickness, and systolic function. The visually estimated ejection fraction is between 65-70%. Spectral Doppler is indicative of an impaired relaxation filling pattern. E/E prime ratio is <8, consistent with normal filling pressures. Evidence suggests grade I (mild) diastolic dysfunction. Right Ventricle Normal right ventricular cavity size and systolic function. Atria Both atria are normal in size. There is no evidence of interatrial shunt. Aortic Valve Normal aortic valve structure and function. There is no aortic valve stenosis. There is no aortic valve regurgitation. Mitral Valve Normal mitral valve structure and function. There is trace mitral valve regurgitation. There is no mitral valve stenosis. Pulmonic Valve The pulmonic valve is likely normal. There is trace pulmonic valve regurgitation. Tricuspid Valve Normal tricuspid valve structure. There is trace tricuspid valve regurgitation. The right ventricular systolic pressure is normal. The right ventricular systolic pressure is 19 mmHg. Normal right atrial pressure. There is no evidence of pulmonary hypertension. Great Vessels The pulmonary artery was not well visualized. There is no dilatation of the ascending aorta measuring 3.50 cm. Venous The inferior vena cava is normal in size and collapses greater than 50% with inspiration. Pericardium/Pleural There is a small loculated pericardial effusion overlying the left ventricle. Prior Study Comparison No prior study available for comparison. Measurements 2D Linear Measurements IVSd: 1.11 0.6-0.9/0.6-1.0 cm LVIDd: 4.37 3.9-5.3/4.2-5.9 cm LVIDd Index: 2.56 2.4-3.2/2.2-3.1 cm/m2 LVIDs: 2.45 2.0-3.6 cm LVPWd: 0.81 0.7-1.1 cm LA Diam: 3.90 2.7-3.8/3.0-4.0 cm LAIDs Index: 2.28 1.5-2.3 cm/m2 LV Mass: 172.02 67-162/88-224 g LV Mass Index: 100.60 43-95/49-115 g/m2 LVOT Diam: 2.20 3.0+(-)1.3 cm 2D Systolic Function EF 4C: 70.50 >55% EF 2C: 62.30 >55% EF BiP: 67.10 >55% Mitral Valve MV Pk E: 0.37 MV PK A: 0.69 MV Decel Time: 145.00 E/A: 0.50 E'Lateral: 7.62 E'Medial: 3.15 E/E' Med: 11.80 E/E' Lat: 4.90 PHT: 42.00 MVA PHT: 5.24 Decel [place]: 2.57 Aortic Valve AoV Pk Que: 1.19 AoV Mn Que: 0.76 AoV VTI: 0.22 AoV Pk Grad: 6.00 Aov Mn Grad: 3.00 AMARI Cont.VTI: 2.72 LVOT LVOT Pk Que: 0.85 LVOT Mn Que: 0.58 LVOT VTI: 0.16 LVOT Pk Grad: 3.00 LVOT Mn Grad: 1.00 LVOT Diam: 2.20 LVOT Area: 3.80 Diastolic Function MV Pk E: 0.37 MV Pk A: 0.69 E/A: 0.50 E'Medial: 3.15 E/E' Med: 11.80 E' Laterial: 7.62 E/E' Lat: 4.90 Right Ventricle TAPSE (mm): 20.00 TVS' Que: 11.00 Tricuspid Valve TR Pk Que: 2.02 TR Pk Grad: 16.00 RA Press: 3.00 RVSP: 19.00 Great Vessels Aorta Ao Asc: 3.50 2.1-3.4 cm Pulmonary Veins Pulm Vein S/D 1.30 Updated in Other Vendor System with Status of Final Navneet Sherman MD electronically signed on 10/17/2024 11:06:23 AM with status of Final
--- OUTSIDE RECORDS SUMMARY | 2024-10-16 12:52 | XMS_ITS | Patient Health Record ---
Author Organization [facility] Address [address] [place] [address] Care Team Providers Care Clinical Recruiter Name Role Phone Александр Alves D.O. Primary Care Provider Unavailab yasmeen Oropeza MD, Ellen Unavailable [phone] Nery Bowling Unavailable [phone] Allergies Allergen (clinical drug ingredient) Drug/Non Drug Allergy documented on EMR Reaction Allergy Type Onset Date Status Latex Latex Unknown Allergy Active Reason For Referral No Information Medications Medication SIG (Take, Route, Fr equency, Duration) Notes Start Date End Date Status Synthroid 100 MCG 1 tab(s) orally once a day Active Prazosin HCl 5 MG 1 cap(s) orally morning Active Social History Tobacco Use: Social History Observation Description Date Details (start date - stop date) Never Smoker NA - NA Smoking: Question Answer Notes Are you a : Never Smoker Alcohol Screen Question Answer Notes Did you have a drink contain ing alcohol in the past year? Yes How often did you have a dri nk containing alcohol in the past year? Two to three times per week (3 points) How many drinks did you have on a typical day when you were drinking in the past year? 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) Active confirmed Problem Mixed conductive and sensorineural hearing loss of left ear with restricted hearing of right ear (H90.A32) Active confirmed Problem Sensorineural hearing loss (SNHL) of right ear with restricted hearing of left ear (H90.A21) Active confirmed Problem History of mastoidectomy (Z90.89) Active confirmed Vital Signs Blood pressure diastolic 80 mm Hg 07/09/2024 Height 63.6 in 07/09/2024 Blood pressure systolic 120 mm Hg 07/09/2024 Weight 145 lbs 07/09/2024 BMI 25.2 kg/m2 07/09/2024 Encounters Encounter Location Date Provider Diagnosis [facility] [address] [place] [address] 07/09/2024 Nery Bowling Sensorineural hearin g loss (SNHL) of right ear with restricted hearing of left ear H90.A21 and Mixed conductive and sensorineural hearing loss of left ear with restricted hearing of right ear H90.A32 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 Mastoid cavity cleaned with suction and currette. Hearing as expected (no OCR), recommend bilateral hearing aids. Recheck in 6 months. 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 Mastoid cavity cleaned with suction and currette. Hearing as expected (no OCR), recommend bilateral hearing aids. Recheck in 6 months. Some difficulty with HER, recommend repeat HT at fu 07/09/2024 Mixed conductive and sensorineural hearing loss of left ear with restricted hearing of right ear (ICD-10 - H90.A32) 07/09/2024 History of mastoidectomy (ICD-10 - Z90.89) History of lef t epidermoid with MCF resection with Dr. Chandler 20+ years ago with left cholesteatoma s/p CWD mastoidectomy for recurrent infections. Mastoid cavity cleaned with suction and currette. Hearing as expected (no OCR), recommend bilateral hearing aids. Recheck in 6 months. 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 Mastoid cavity cleaned with suction and currette. Hearing as expected (no OCR), recommend bilateral hearing aids. Recheck in 6 months. 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 Mastoid cavity cleaned with suction and currette. Hearing as expected (no OCR), recommend bilateral hearing aids. Recheck in 6 months. Some difficulty with HER, recommend repeat HT at fu Plan Of Treatment Next Appt Details Provider Name:Ellen eldridge, 01/07/2025 01:15:00 PM, [address] [facility], [address], [place], [address], Insurance Providers Payer Name Payer Address Payer Phone Subscriber Number Group Number Insured Name Patient Relationship to Insured Coverage Start Date Coverage End Date [facility] PPO [address] [place] [address] [id number] Maura San Self - patient is the insured Medical (General) History Medical History History ICD Code hypertension Thyroid CT Scan DYE Hearing aids Surgical History Surgery Date(Month/Year) 3 brain surgery left leg surgery lung
== END ==
LOC: HO.CARD 12:50
PROVIDERS: PCP Physician Assistant; Visit Provider Physician Assistant
DX: R07.89 Other chest pain (principal)
CPT/HCPCS: 93306

== ENCOUNTER → 2024-10-16 12:52 | Outpatient (BNV) | payer MEDICARE, SELFPAY | PROVIDERS: PCP Physician Assistant; Visit Provider Internal Medicine Cardiovascular Disease | DX: I31.39 Other pericardial effusion (noninflammatory) (principal); I51.89 Other ill-defined heart diseases | CPT/HCPCS: 93306 ==

== ENCOUNTER 2024-11-09 14:28 | Outpatient (REF) | payer MEDICARE, SELFPAY ==
--- OUTSIDE RECORDS SUMMARY | 2019-03-10 16:00 | XMS_ITS | Encounter Summary ---
Author Organization [facility] Address [address] [place] [address] [place] [address] Phone Care Team Providers Care Hooker Operator Name Role Phone Александр Alves DO Primary Care Provider [phone] Encounter Details Date Type Department Care Team (Late st Contact Info) Description 03/10/2019 3:00 PM EST Hospital Encounter [facility] [address] [place] [id number] Roselia Gonzalez CNP [address] [place] [phone] [email or web address] Social History Tobacco Use Types Packs/Day Years Used Date Smoking Tobacco: Former Smokeless Tobacco: Never Education Answer Date Recorded Are you interested in more education? Not on kelsey e 06/22/2022 Are you concerned about learning? Not on file 06/22/2022 No 06/22/2022 No 06/22/2022 Digital Access Answer Date Recorded No 07/21/2022 No 07/21/2022 Reliable internet access at home? Not on file 07/21/2022 Device with a working camera? Not on file Comments Unknown Sex and Gender Information Value Date Recorded Sex Assigned at Not on file Legal Sex Female 10:37 PM EDT Gender Identity Not on file Sexual Orientation Not on file documented as of this encounter Plan of Treatment Not on file documented as of this encounter Procedures Procedure Name Priority Date/Time Associated Diagnosis Comments XR LUMBOSACRAL SPINE 4 OR MORE VIEWS Routine 03/10/2019 3:23 PM EST Acute midline low back pain without sciatica documented in this encounter Results * XR LUMBOSACRAL SPINE 4 OR MORE VIEWS (03/10/2019 3:23 PM EST) Anatomical Region Laterality Modality L-spine Radiographic Kathrin ging 03/10/2019 3:30 PM EST Impressions 03/10/2019 3:35 PM EST 1. No acute compression fracture of the thoracic spine. 2. Very subtle age indeterminate compression fracture of the L1 vertebral body. No retropulsion of bone or paraspinal widening to indicate paraspinal hematoma. POS - [id number] Narrative 03/10/2019 3:35 PM EST EXAM: XR LUMBOSACRAL SPINE 4 OR MORE VIEWS, XR THORACIC SPINE 3 VIEW HISTORY: *Back pain or radiculopathy, < 6 wks, uncomplicated COMPARISON: None. FINDINGS: A right-sided ventriculoperitoneal shunt catheter is present. The tip terminates over the RA. The thoracic alignment is normal. The cervicothoracic junction is unremarkable. The thoracic vertebral bodies are normal in height. Mild loss of height of several thoracic disc spaces. Mild marginal spurring. No paraspinal widening. The visualized lungs are unremarkable. Degenerative changes of the lower thoracic spine. Subtle degenerative anterolisthesis of L4 on L5. Subtle depression of the superior endplate of L1 without retropulsion of bone. Facet arthrosis at L3-L4, L4-L5, and L5-S1. No significant loss of lumbar disc space height. Stool is noted throughout the colon. Lamellated calcification within the right pelvis which may represent a fibroid. Procedure Note Aime Perez MD - 03/10/2019 EXAM: XR LUMBOSACRAL SPINE 4 OR MORE VIEWS, XR THORACIC SPINE 3 VIEW HISTORY: *Back pain or radiculopathy, < 6 wks, uncomplicated COMPARISON: None. FINDINGS: A right-sided ventriculoperitoneal shunt catheter is present.The tip terminates over the RA. The thoracic alignment is normal. Thecervicothoracic junction is unremarkable. The thoracic vertebral bodiesare normal in height. Mild loss of height of several thoracic discspaces. Mild marginal spurring. No paraspinal widening. The visualized lungs areunremarkable. Degenerative changes of the lower thoracic spine. Subtle degenerative anterolisthesis of L4 on L5. Subtle depression of thesuperior endplate of L1 without retropulsion of bone. Facet arthrosis at L3-L4, L4-L5, and L5-S1. No significant loss of lumbardisc space height. Stool is noted throughout the colon. Lamellated calcification within theright pelvis which may represent a fibroid. IMPRESSION: 1. No acute compression fracture of the thoracic spine. 2. Very subtle age indeterminate compression fracture of the L1 vertebralbody. No retropulsion of bone or paraspinal widening to indicateparaspinal hematoma. POS - [id number] Roselia Gonzalez BUNCH MAKER IMG XR SPINE Final Resul t documented in this encounter Visit Diagnoses Not on filedocumented in this encounter Care Teams Hooker Operator Relationship Specialty Start Date End Date Александр Alves DO [email or web address] PCP - General Internal Medicine 03/10/19 documented as of this encounter Additional Source Comments The information contained in this document represents components of the legal health record. It is not the complete legal health record.[facility]
--- OUTSIDE RECORDS SUMMARY | 2019-03-10 16:00 | XMS_ITS | Encounter Summary ---
Author Organization [facility] Address [address] [place] [address] [place] [phone] Phone Care Team Providers Care Transportation Maintenance Operator Name Role Phone Александр Alves DO Primary Care Provider [phone] Encounter Details Date Type Department Care Team (Late st Contact Info) Description 03/10/2019 3:00 PM EST Hospital Encounter [facility] [address] [place] [phone] Roselia Gonzalez CNP [address] [place] [address] Social History Tobacco Use Types Packs/Day Years [...] Name Priority Date/Time Associated Diagnosis Comments XR THORACIC SPINE 3 VIEW Routine 03/10/2019 3:22 PM EST Pain in thoracic spine documented in this encounter Results * XR THORACIC SPINE 3 VIEW (03/10/2019 3:22 PM EST) Anatomical Region Laterality Modality T-spine Radiographic Kathrin ging 03/10/2019 3:30 PM EST Impressions 03/10/2019 3:35 PM EST 1. No acute compression fracture of the thoracic spine. 2. Very subtle age indeterminate compression fracture of the L1 vertebral body. No retropulsion of bone or paraspinal widening to indicate paraspinal hematoma. POS - [id number] Narrative 03/10/2019 3:35 PM EST EXAM: XR [...] paraspinal widening to indicateparaspinal hematoma. POS - [id number] us Roselia Gonzalez EDGE BASTER IMG XR SPINE Final Resul t documented in this encounter Visit Diagnoses Not on filedocumented in this encounter Care Teams Transportation Maintenance Operator Relationship Specialty Start Date End Date Александр Alves DO [email or web address] PCP - General Internal Medicine 03/10/19 documented as of this encounter Additional Source Comments The information contained in this document represents components of the legal health record. It is not the complete legal health record.[facility]
--- OUTSIDE RECORDS SUMMARY | 2019-08-03 13:52 | XMS_ITS | Encounter Summary ---
Author Organization [facility] Address [address] [place] [address] [place] [phone] Phone Care Team Providers Care Basin Tender Name Role Phone Александр Alves DO Primary Care Provider [phone] Encounter Details Date Type Department Care Team (Late st Contact Info) Description 08/03/2019 1:52 PM EDT Hospital Encounter [facility] [address] [place] [address] Pete Krause, UBALDO [address] [place] [address] [place] [address] Social History Tobacco Use Types Packs/Day Years [...] Name Priority Date/Time Associated Diagnosis Comments XR FOREARM 2 VIEWS (RIGHT) Urgent/patient waiting 08/03/2019 1:56 PM EDT Forearm injury, right, initial encounter documented in this encounter Results * XR Forearm 2 Views (Right) (08/03/2019 1:56 PM EDT) Anatomical Region Laterality Modality Forearm Right Radiographic Kathrin ging 08/03/2019 1:58 PM EDT Impressions 08/03/2019 2:09 PM EDT No acute fracture or worrisome bony lesion identified. POS - [id number] Narrative 08/03/2019 2:09 PM EDT AP and lateral views right forearm. No prior. No fracture or bony lesion is identified. No foreign bodies seen. Ossicle noted by the ulnar styloid possibly is dystrophic or related to old injury. Procedure Note Benito Elkins MD - 08/03/2019 AP and lateral views right forearm. No prior. No fracture or bony lesionis identified. No foreign bodies seen. Ossicle noted by the ulnar styloidpossibly is dystrophic or related to old injury. IMPRESSION: No acute fracture or worrisome bony lesion identified. POS - [id number] us Pete Krause DAIRY BACTERIOLOGIST IMG XR UPPER EXTREMITY Final Re sult documented in this encounter Visit Diagnoses Not on filedocumented in this encounter Care Teams Basin Tender Relationship Specialty Start Date End Date Александр Alves DO [email or web address] PCP - General Internal Medicine 03/10/19 documented as of this encounter Additional Source Comments The information contained in this document represents components of the legal health record. It is not the complete legal health record.[facility]
--- OUTSIDE RECORDS SUMMARY | 2023-10-03 11:15 | XMS_ITS ---
Author Organization [facility] Address [address] [place] [address] Care Team Providers Care Title Searcher Name Role Phone Александр Alves D.O. Primary Care Provider Unavailab yasmeen Oropeza MD, Ellen Unavailable [phone] REASON FOR VISIT mastoid cleaning only wants KYN Encounters Encounter Location Date Provider Diagnosis [facility] [address] [place] [address] 10/03/2023 Ellen Oropeza Plan Of Treatment Next Appt Details Provider Name:Ellen eldridge, 01/07/2025 01:15:00 PM, [address] [facility], [place], [address], Progress Notes * Maura SAN ADOB:1945 (79 yo F)Acc No.[id number]:10/03/2023 Progress Notes Patient: Maura PEMBERTON Provider: Marii Oropeza MD :1945 A ge:78 Y S ex:Female Date:10/03/2023 [facility] [id number] Pcp:Александр Alves D.O. Subjective: * Chief Complaints: * 1 . mastoid cleaning only wants KYN. * Medical History: Objective: * Vitals: * Physical Examination: Assessment: Plan: * Treatment: * Images: * Electronic signature of Bernadine Oropeza MD, MD on 11/09/2024 at 07:55 PM EDT Sign off status: Pending * Provider: Marii Oropeza MD Date: 0 10/03/2023 Generated for Shira blevins/Mohini/Marian on: 0 11/09/2024 07:55 PM EDT
--- OUTSIDE RECORDS SUMMARY | 2023-10-03 11:30 | XMS_ITS ---
Author Organization [facility] Address [address] [place] [address] Care Team Providers Care Oceanographic Meteorologist Name Role Phone Александр Alves D.O. Primary Care Provider Unavailab yasmeen Oropeza MD, Ellen Unavailable [phone] Nery Bowling Unavailable [phone] REASON FOR VISIT CLEANING FIRSTB mastoid cleaning only wants KYN Encounters Encounter Location Date Provider Diagnosis [facility] [address] [place] [address] 10/03/2023 Nery Bowling Plan Of Treatment Next Appt Details Provider Name:Ellen eldridge, 01/07/2025 01:15:00 PM, [address] [facility], [place], [address], Progress Notes * Maura SAN ADOB:1945 (79 yo F)Acc No.[id number]:10/03/2023 Progress Note Patient: Maura PEMBERTON Provider: Lori Bowling Rd Manager :1945 A ge:78 Y S ex:Female Date:10/03/2023 [facility] [id number] Pcp:Александр Alves D.O. Subjective: * Chief Complaints: * 1 . CLEANING FIRSTB mastoid cleaning only wants KYN. * Medical History: Objective: * Vitals: * Physical Examination: Assessment: Plan: * Treatment: * Images: * Electronic signature of Delfin Bowling CCC-A on 11/09/2024 at 07:55 PM EDT Sign off status: Pending * Provider: Lori Bowling Rd Manager Date: 0 10/03/2023 Generated for Shira blevins/Mohini/Marian on: 0 11/09/2024 07:55 PM EDT
--- OUTSIDE RECORDS SUMMARY | 2024-04-02 09:45 | XMS_ITS ---
Author Organization [facility] Address [address] [facility] [address] [place] [address] Care Team Providers Care Cafeteria Attendant Name Role Phone Александр Alves D.O. Primary Care Provider Unavailab yasmeen Oropeza MD, Ellen Unavailable [phone] REASON FOR VISIT mastoid cleaning Encounters Encounter Location Date Provider Diagnosis [facility] [address] [facility] [address] [place] [address] 04/02/2024 Ellen Oropeza Plan Of Treatment Next Appt Details Provider Name:Ellen eldridge, 01/07/2025 01:15:00 PM, [address] [facility] [facility], [place], [address], Progress Notes * Maura SAN ADOB:1945 (79 yo F)Acc No.[id number]:04/02/2024 Progress Notes Patient: Maura PEMBERTON Provider: Marii Oropeza MD :1945 A ge:79 Y S ex:Female Date:04/02/2024 [address] [id number] Pcp:Александр Alves D.O. Subjective: * Chief Complaints: * 1 . Mastoid cleaning. * Medical History: Objective: * Vitals: * Physical Examination: Assessment: Plan: * Treatment: * Images: * Electronic signature of Bernadine Oropeza MD, on 11/09/2024 at 07:55 PM EDT Sign off status: Pending * Provider: Marii Oropeza MD Date: 0 04/02/2024 Generated for Shira blevins/Mohini/Marian on: 0 11/09/2024 07:55 PM EDT
--- NOTE | ~2024-11-09 | US_ITS ---
EXAMINATION: Noninvasive assessment of the bilateral lower extremities without ARTERIAL DUPLEX, ANKLE BRACHIAL INDICES (ABIs), and PULSE VOLUME RECORDINGS (PVRs). CLINICAL INFORMATION: Lower extremity weakness, bilaterally. TECHNIQUE: Duplex Doppler techniques with waveform analysis and measurement of velocities in the bilateral common femoral, profunda femoris, superficial femoral, popliteal and tibial arteries were performed. The study was performed only at rest. COMPARISON: None FINDINGS: DIRECT DUPLEX DOPPLER FINDINGS: RIGHT LEG: Common femoral artery: 140 cm/s, phasicity: Triphasic. Profunda femoris artery: 85 cm/s, phasicity: Triphasic. Spectral broadening. Superficial femoral artery (proximal): 111 cm/s, phasicity: Triphasic. Spectral broadening. Superficial femoral artery (mid): 101 cm/s, phasicity: Triphasic. Superficial femoral artery (distal): 117 cm/s, phasicity: Triphasic. Spectral broadening. Popliteal artery: 96 cm/s, phasicity: Triphasic. Spectral broadening. Posterior tibial artery: 93 cm/s, phasicity: Triphasic. Spectral broadening. Peroneal artery: 71 cm/s, phasicity: Monophasic. Spectral broadening. Anterior tibial artery: 116 cm/s, phasicity: Triphasic. Spectral broadening. Dorsalis pedis artery: 99 cm/s, phasicity:Monophasic. Spectral broadening. LEFT LEG: Common femoral artery: 122 cm/s, phasicity: Triphasic. Profunda femoris artery: 55 cm/s, phasicity: Triphasic. Spectral broadening. Superficial femoral artery (proximal): 111 cm/s, phasicity: Triphasic. Superficial femoral artery (mid): 117 cm/s, phasicity: Triphasic. Superficial femoral artery (distal): 107 cm/s, phasicity: Triphasic. Popliteal artery: 89 cm/s, phasicity: Triphasic. Spectral broadening. Posterior tibial artery: 97 cm/s, phasicity: Triphasic. Spectral broadening. Peroneal artery: 84 cm/s, phasicity: Triphasic. Spectral broadening. Anterior tibial artery: 125 cm/s, phasicity: Triphasic. Spectral broadening. Dorsalis pedis artery: 69 cm/s, phasicity: Monophasic. Spectral broadening. Bilateral prominent inguinal lymph nodes. US/US arterial duplex LE BI IMPRESSION: Right: Severe inflow disease, dorsalis pedis artery. Left: Severe inflow disease, dorsalis pedis artery Electronically signed by: Francisco Singh MD 11/10/2024 08:53 AM EDT
--- OUTSIDE RECORDS SUMMARY | 2024-11-09 19:56 | XMS_ITS | Patient Health Record ---
Author Organization [facility] Address [address] [place] [address] Care Team Providers Care Medical Technologist Prn Name Role Phone Александр Alves D.O. 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 [address] [address] 07/09/2024 Ellen Oropeza Cholesteatoma of lef t [...] Name:Ellen eldridge, 01/07/2025 01:15:00 PM, [address] [facility], [address], [place], [address], Insurance Providers Payer Name Payer Address Payer Phone Subscriber Number Group Number Insured Name Patient Relationship to Insured Coverage Start Date Coverage End Date [facility] PPO [address] [place] [address] [id number] Maura San Self - patient is the insured Medical (General) History Medical History History ICD Code hypertension Thyroid CT Scan DYE Hearing aids Surgical History Surgery Date(Month/Year) 3 brain surgery left leg surgery lung
--- OUTSIDE RECORDS SUMMARY | 2024-11-09 19:56 | XMS_ITS | Clinical Summary ---
Author Organization [facility] Address [address] [address] Phone Care Team Providers Care Maintenance And Utilities Supervisor Name Role Phone Александр Alves DO Primary Care Provider [phone] Allergies Active Allergy Reactions Criticality Noted Date Comments Amlodipine Angina High 09/11/2024 Iodinated Contrast Media Unknown 09/13/2021 Iodine Hives 12/27/2014 Irbesartan Unknown 09/11/2024 Latex Rash Low 12/27/2014 Metoprolol Other (See Comments) 09/11/2024 metoprolol Medications levothyroxine (SYNTHROID) 100 MCG tablet 1 tablet on an empty stomach in the morning Orally Once a day Active atenolol (TENORMIN) 25 MG tablet Take 1 tablet by mouth daily. Active aspirin 81 mg chewable tablet Take 1 tablet by mouth daily. Active amLODIPine (NORVASC) 2.5 MG tablet Take 2.5 mg by mouth daily. 9 Active diclofenac sodium (SOLARAZE) 3 % Gel Apply topically 2 (two) times a day. 45 g 0 Active Additional Information Patient not taking.Reported on 09/11/2024 prazosin (MINIPRESS) 5 MG capsule Take 1 tablet by mouth daily. 4 Active aspirin 81 mg Tab Aspir-81 m,w,f Active allopurinol (ZYLOPRIM) 100 MG tablet Take 100 mg by mouth daily. Active carvedilol (COREG) 12.5 MG tablet Take 12.5 mg by mouth 2 (two) times a day. Active labetaloL (TRANDATE) 100 MG tablet TAKE 2 TABLETS BY MOUTH IN THE MORNING, THEN 1 TABLET AT NIGHT Active metoprolol tartrate (LOPRESSOR) 50 MG tablet Take 50 mg by mouth 2 (two) times a day. Active propranoloL (INDERAL) 20 MG immediate release tablet Take 1 tablet every day by oral route as directed for 30 days. Active atenolol (TENORMIN) 50 mg tablet Take 50 mg by mouth. Active Active Problems No known active problems Encounters Date Type Department Care Team Description 09/11/2024 1:00 PM EDT Office Visit [facility] [address] [address] Adelaida Banks, IRENE Dysfunction of right eustachian tube (Primary Dx) from Last 3 Months Social History Tobacco Use Types Packs/Day Years Used Date Smoking Tobacco: Former Smokeless Tobacco: Never Tobacco Cessation:Counseling Given: Not Answered Education Answer Date Recorded Are you interested [...] on file Sexual Orientation Not on file Last Filed Vital Signs Vital Sign Reading Time Taken Comments Blood Pressure 167/90 09/11/2024 1:24 PM EDT Pulse 52 09/11/2024 1:24 PM EDT Temperature 36.8 C (98.2 F) 09/11/2024 1:13 PM EDT Respiratory Rate 16 09/11/2024 1:13 PM EDT Oxygen Saturation 98% 09/11/2024 1:13 PM EDT Inhaled Oxygen Concentration - - Weight 68 kg (150 lb) 09/11/2024 1:13 PM EDT Height 160.7 cm (5' 3.27 ) 03/10/2019 2:38 PM ES T Body Mass Index 26.35 03/10/2019 2:38 PM EST Plan of Treatment Health Maintenance Due Date Last Done Comments CREATININE LEVEL 1945 LIPID PANEL 1945 TSH LEVEL 1945 DEPRESSION SCREENING 1959 SMOKING Hx and SMOKELESS TOBACCO SCREENING 01/06/1960 HEPATITIS C SCREENING 1965 PNEUMOCOCCAL VACCINES (50+ years) (1 of 1 - PCV) 1997 ZOSTER VACCINES (1 of 2) 1997 Adult Td,Tdap Booster 06/28/2008 06/28/1998 OSTEOPOROSIS SCREENING INITIAL (ONE-TIME) 01/06/2012 RSV VACCINE (1 - 1-dose 75+ series) 2022 INFLUENZA VACCINE (#1) 2024 COVID-19 VACCINE ( season) 2024 01/10/2022, 02/20/2021, 05/27/2020, Additional history exists HEPATITIS A VACCINES Aged Out No long er eligible based on patient's age to complete this topic HIB VACCINES Aged Out No longer eligi ble based on patient's age to complete this topic MENINGOCOCCAL VACCINES (ACWY) Aged Out No longer eligible based on patient's age to complete this topic MENINGOCOCCAL VACCINES (B) Aged Out N o longer eligible based on patient's age to complete this topic Medical Devices Not on file Insurance [employer] [place] MEDICARE PPO BLUE REPLACEMENT [facility] [place] MEDICARE PPO BLUE REPLACEMENT MEDICARE PPO [place]UE [place] [place] [employer] [address] MEDICARE PPO [address] [address] [address] MEDICARE PPO BLUE REPLACEMENT [employer] [place] MEDIC[place] BLUE REPLACEMENT Care Teams Maintenance And Utilities Supervisor Relationship Specialty Start Date End Date Александр Alves DO [email or web address] PCP - General Internal Medicine 03/10/19 Additional Source Comments The information contained in this document represents components of the legal health record. It is not the complete legal health record.[facility]
== END 2024-11-09 14:29 | disposition home or self-care (01) ==
LOC: HO.US 14:28
PROVIDERS: PCP Physician Assistant; Visit Provider Physician Assistant
DX: R29.898 Other symptoms and signs involving the musculoskeletal system (principal); R53.1 Weakness; I73.9 Peripheral vascular disease, unspecified
CPT/HCPCS: 93925

== ENCOUNTER → 2024-11-09 14:30 | Outpatient (BNV) | payer MEDICARE, SELFPAY | PROVIDERS: PCP Physician Assistant; Visit Provider Radiology Diagnostic Radiology | DX: I70.211 Atherosclerosis of native arteries of extremities with intermittent claudication, right leg (principal); I70.212 Atherosclerosis of native arteries of extremities with intermittent claudication, left leg | CPT/HCPCS: 93925 ==